=== PATIENT | male | born 1935 | race Caucasian/White ===

== ENCOUNTER 2022-05-21 16:25 | Inpatient (IN) | payer OTHER ==
[~2022-05-21] VITALS: Ht 177.8 cm; Wt 67.6 kg
--- NOTE | 2022-05-21 16:28 | NUR ---
Placed in room 04 . Placed on laboratory monitor, blood pressure machine and pulse oximeter. To gown for exam. Side rails up. Report given to Dimitri BILLINGS.
[2022-05-21 16:29] VITALS: BP_SYST 131
--- NOTE | 2022-05-21 16:51 | NUR ---
PT BIBA AWAKE AND ALERT, AO X4. EMT STATED CALLED 911 BECAUSE PT HAS INCREASED WEAKNESS FOR X3DAYS. PT HAS COUGHT. STATES PT HAS DECREASED APPEITATE. PT PENIES PAIN. PERRLA. PT SKIN LOOKS PALE.
--- NOTE | 2022-05-21 16:59 | NUR ---
MD DR BALL AT BEDSIDE
[2022-05-21 17:31] LABS: ANION GAP 7 (5-15); CALCIUM 8.4 mg/dL (8.4-11.0); CHLORIDE 99 mmol/L (98-107); CREATININE 0.95 mg/dL (0.55-1.30); GLUCOSE 248 mg/dL (70-99); UREA NITROGEN, BLOOD 62 mg/dL (8-21)
[2022-05-21 17:32] LABS: BASOPHILS % (AUTO) 0.2 % (0.0-2.0); NEUTROPHILS # (AUTO) 13.3 K/uL (1.8-7.7)
[2022-05-21 17:36] LABS: EOSINOPHILS % (AUTO) 0.2 % (0.0-4.0); LYMPHOCYTES # (AUTO) 1.1 K/uL (1.0-5.5); LYMPHOCYTES % (AUTO) 7.3 % (20.5-51.5); MEAN CORPUSCULAR HEMOGLOBIN 31 pg (27-31); MEAN CORPUSCULAR HGB CONC 33 % (32-36); MEAN CORPUSCULAR VOLUME 92 fL (79.0-98.0); MONOCYTES # (AUTO) 0.5 K/uL (0.0-1.0); MONOCYTES % (AUTO) 3.6 % (1.7-9.3); NEUTROPHILS % (AUTO) 88.7 % (40.0-70.0); PLATELET COUNT (AUTO) 445 K/uL (130-430); RED BLOOD CELL COUNT(AUTO) 2.27 MIL/uL (4.2-6.2); RED CELL DISTRIBUTION WIDTH 13.6 % (9.0-15.0)
[2022-05-21 17:38] LABS: ALANINE AMINOTRANSFERASE 13 U/L (12-78); ALBUMIN 2.2 g/dL (3.4-4.8); ASPARTATE AMINOTRANSFERASE 8 U/L (10-37); TOTAL BILIRUBIN 0.2 mg/dL (0.0-1.0)
--- NOTE | 2022-05-21 17:53 | NUR ---
COVID-19 GAGANDEEP SWAB OBTAINED, LABELED, AND SENT TO THE LAB.
[2022-05-21] MEDS ORDERED: ACET325T PO (18:10)
[2022-05-21] MEDS ORDERED: PRED5TAB PO (18:10)
[2022-05-21] MEDS ORDERED: GLIM2TAB PO (18:10)
[2022-05-21] MEDS ORDERED: HYDR200T80 PO (18:10)
[2022-05-21] MEDS ORDERED: IBUP-2604 PO (18:10)
[2022-05-21] MEDS ORDERED: HYDR-3919 PO (18:10)
[2022-05-21] MEDS ORDERED: ASPI-862 PO (18:10)
--- NOTE | 2022-05-21 18:10 | NUR ---
Medication reconciliation completed with information provided by patient . Any prior medication reconciliation on file was reviewed and corrected.
--- NOTE | 2022-05-21 18:11 | NUR ---
Mann sheriff in ED - 05/21/22 at 1811 by [email or web address] Medication reconciliation completed with information provided by patient. Any prior medication reconciliation on file was reviewed and corrected.
--- NOTE | 2022-05-21 18:52 | NUR ---
Admit bed requested Patient will be admitted to care of Admitted to TELE unit. Diagnosis GI BLEED , ANEMIA Inpatient (Yes or No) YES Observation (Yes or No) NO Orientation concerns or request close to nursing station (Yes or No) NO Covid Status NEG On vent or bipap NO Isolation requirements NO Needs a sitter NO From Home (Yes or if No enter name of facility) YES Requires Dialysis (Yes or No) YES Med Rec Completed (Yes of No) YES
--- NOTE | 2022-05-21 19:16 | NUR ---
Requisitions for blood sent to the lab with blood transfusion consent.
[2022-05-21 20:45] VITALS: BP_SYST 129
--- NOTE | 2022-05-21 20:50 | NUR ---
ADMISSION NOTE Received patient from ER via theresa, received report from DRY KILN BURNER. Patient admitted with diagnosis of GI BLEED, ANEMIA. Patient oriented to hospital routine, call light, toileting and safety-patient verbalized understanding.
--- NOTE | 2022-05-21 20:52 | NUR ---
Patient will be admitted to care of DR PALMER. Admitted to TELE unit. Will go to room 132C. Belongings list completed. Complete and up to date summary report printed. SBAR report to be given TO SIXTO at bedside with opportunity for questions.
--- NOTE | 2022-05-21 22:38 | NUR ---
Paged Dr. Galindo for sleeping pills
--- NOTE | 2022-05-21 22:45 | NUR ---
CONSULTATION PAGED/CALLED Reason for Consultation: GI BLEED Person Who was Notified: DION Consulting Physician: DR. [facility] ATTENDANT Program Director Specialty: GI Ordering Physician: DR. SPENCER RICH
--- NOTE | 2022-05-21 22:48 | NUR ---
DR PALMER CALLED BACK , PRIMARY RN IS NOT AVAILABLE; TALKED TO MD , INFORMED HIM THAT PT IS REQUESTING FOR SLEEPING PILL ; ORDERED RESTORIL 15 MG PO QHS PRN FOR INSOMNIA , ORDER ENTERED AND NOTIFIED PRIMARY RN.
[2022-05-21] MEDS: TEMAZEPAM 7.5 MG CAPSULE PO PRN (23:13)
[2022-05-22] VITALS (17 sets, daily range): BP systolic 99–149
[2022-05-22] MEDS ORDERED: ONDANSETRON HCL 4 MG/2 ML VIAL IM PRN (05:00)
[2022-05-22] MEDS ORDERED: PANTOPRAZOLE SODIUM 40 MG/VIAL (PROTONIX) IVP ONE (05:00)
--- NOTE | 2022-05-22 05:00 | NUR ---
VOMITING: Patient had episode of VOMITING with blood. GI notifbarbi MATIAS was notified and new orders were placed for N/V medications.
[2022-05-22] MEDS ORDERED: PANTOPRAZOLE SODIUM 40 MG/VIAL (PROTONIX) ONE (05:18)
[2022-05-22] MEDS: PANTOPRAZOLE SODIUM 40 MG in NS 50 ML IV SCH ×4 (06:02→21:28)
--- NOTE | 2022-05-22 07:20 | NUR ---
opening, received sbar from night nurse, patient is in bed, just finished 2unit of blood transfusion, family at bedside. bed lock and low, call lugth within reach
--- NOTE | 2022-05-22 07:30 | NUR ---
md dr brownlee at bedside and ordered patient be transferred in icu,
--- NOTE | 2022-05-22 07:50 | NUR ---
transferred to icu enodorsed care to horticulture superintendent
--- NOTE | 2022-05-22 07:50 | NUR ---
PATIENT TRANSFERRED FROM [facility], DR PAUL ROUNDED ON PATIENT AND ORDERED ICU STATUS, RECEIVED REPORT FROM ALFONZO RN-REPORTED THAT PATIENT HAD ONE BLOODY EMESIS WITH BROWN CLOTS AND NO BOWEL MOVEMENTS. NO EMESIS UPON ARRIVAL TO ICU. PT A/OX4, SINUS TACHY, ROOM AIR WITH O2 SAT >90, NO S/S OF DISTRESS, PALE SKIN, MOVES ALL EXTREMITIES WITH WEAKNESS, NO NUMBNESS OR TINGLING IN EXTREMITIES, DENIES NAUSEA, DENIES PAIN, CONTINENT BLADDER, IV 20G LEFT AC AND IV 22G LEFT FOREARM, PROTONIX DRIP RUNNING 8MG AT 10ML/HR. WILL CONTINUE TO MONITOR.
[2022-05-22 08:30] LABS: BASOPHILS % (AUTO) 0.2 % (0.0-2.0); EOSINOPHILS % (AUTO) 0.1 % (0.0-4.0); HEMATOCRIT 24.2 % (36-54); HEMOGLOBIN 8.1 g/dL (14.0-18.0); LYMPHOCYTES % (AUTO) 6.1 % (20.5-51.5); MEAN CORPUSCULAR HEMOGLOBIN 29 pg (27-31); MEAN CORPUSCULAR HGB CONC 34 % (32-36); MEAN CORPUSCULAR VOLUME 86 fL (79.0-98.0); MONOCYTES # (AUTO) 0.7 K/uL (0.0-1.0); MONOCYTES % (AUTO) 4.6 % (1.7-9.3); PLATELET COUNT (AUTO) 332 K/uL (130-430); RED BLOOD CELL COUNT(AUTO) 2.82 MIL/uL (4.2-6.2); RED CELL DISTRIBUTION WIDTH 16.6 % (9.0-15.0); WHITE BLOOD COUNT (AUTO) 15.7 K/uL (4.8-10.8)
[2022-05-22 08:32] LABS: ANION GAP 5 (5-15); CALCIUM 7.4 mg/dL (8.4-11.0); CHLORIDE 104 mmol/L (98-107); CREATININE 0.81 mg/dL (0.55-1.30); GLUCOSE 247 mg/dL (70-99); POTASSIUM 4.3 mmol/L (3.5-5.1); UREA NITROGEN, BLOOD 64 mg/dL (8-21)
[2022-05-22 08:40] LABS: TOTAL IRON BIND. CAPACITY 129 ug/dL (250-450)
[2022-05-22] MEDS ORDERED: SIMETHICONE 40 MG/0.6 ML ML ONE (10:01)
[2022-05-22] MEDS: MIDAZOLAM HCL 5 MG/5 ML VIAL ONE ×3 (10:21→10:27)
[2022-05-22] MEDS: fentaNYL CITRATE/PF 100 MCG/2 ML AMP ONE ×2 (10:21→10:24)
[2022-05-22] MEDS ORDERED: D5/0.45 NS 1,000 ML IV SCH (11:00)
--- NOTE | 2022-05-22 11:01 | NUR ---
EGD PERFORMED AT BEDSIDE BY DR PAUL. PATIENT TOLERATED WELL, ON 2L NASAL CANULA, NO S/S OF DISTRESS.
[2022-05-22] MEDS ORDERED: DEXTROSE 50% JECT 50 ML DISP.SYRIN IVP PRN (11:15)
[2022-05-22] MEDS ORDERED: D5W 1,000 ML IV PRN (11:15)
[2022-05-22] MEDS ORDERED: GLUCOSE (DEXTROSE) ORAL GEL -Adults PO PRN (11:15)
[2022-05-22] MEDS: 0.45% NACL 1,000 ML IV SCH (11:23)
[2022-05-22] MEDS: INSULIN REGULAR, HUMAN 100 UNITS/ML, 3 ML VIAL (humuLIN R) SUBCUT PRN ×2 (12:38→19:34)
[2022-05-22 16:53] LABS: RED CELL DISTRIBUTION WIDTH 16.5 % (9.0-15.0)
[2022-05-22 17:03] LABS: MEAN CORPUSCULAR HEMOGLOBIN 27 pg (27-31); MEAN CORPUSCULAR HGB CONC 32 % (32-36); MEAN CORPUSCULAR VOLUME 85 fL (79.0-98.0); PLATELET COUNT (AUTO) 420 K/uL (130-430); WHITE BLOOD COUNT (AUTO) 18.9 K/uL (4.8-10.8)
[2022-05-22 17:06] LABS: RED BLOOD CELL COUNT(AUTO) 1.69 MIL/uL (4.2-6.2)
[2022-05-22 17:08] LABS: HEMATOCRIT 22.8 % (36-54); HEMOGLOBIN 7.8 g/dL (14.0-18.0)
--- NOTE | 2022-05-22 19:30 | NUR ---
Registry 85- Kenn H. received report from day RN. Assuming care now.
[2022-05-22 19:58] LABS: BASOPHILS % (MANUAL) 8 % (0-2); EOSINOPHILS % (MANUAL) 23 % (0-7); LYMPHOCYTES % (MANUAL) 16 % (20-46); MONOCYTES % (MANUAL) 4 % (0-11)
[2022-05-22] MEDS ORDERED: MORPHINE 2 MG/ML INJ. SYRINGE IVP PRN (20:00)
[2022-05-22] MEDS ORDERED: NALOXONE HCL 0.4 MG/ML AMP (NARCAN) IVP PRN (20:00)
--- NOTE | 2022-05-22 23:30 | NUR ---
Patient has now had 5 maroon to black bowel movements. VSS. at bedside.
[2022-05-23] VITALS (17 sets, daily range): BP systolic 115–163
[2022-05-23 00:47] LABS: BASOPHILS % (AUTO) 0.3 % (0.0-2.0); EOSINOPHILS # (AUTO) 0.1 K/uL (0.0-0.4); EOSINOPHILS % (AUTO) 0.4 % (0.0-4.0); LYMPHOCYTES # (AUTO) 1.5 K/uL (1.0-5.5); LYMPHOCYTES % (AUTO) 10.8 % (20.5-51.5); MEAN CORPUSCULAR HEMOGLOBIN 29 pg (27-31); MEAN CORPUSCULAR HGB CONC 33 % (32-36); MEAN CORPUSCULAR VOLUME 87 fL (79.0-98.0); MONOCYTES # (AUTO) 0.6 K/uL (0.0-1.0); MONOCYTES % (AUTO) 4.1 % (1.7-9.3); NEUTROPHILS # (AUTO) 11.6 K/uL (1.8-7.7); NEUTROPHILS % (AUTO) 84.4 % (40.0-70.0); PLATELET COUNT (AUTO) 290 K/uL (130-430); RED BLOOD CELL COUNT(AUTO) 2.42 MIL/uL (4.2-6.2); RED CELL DISTRIBUTION WIDTH 16.7 % (9.0-15.0); WHITE BLOOD COUNT (AUTO) 13.8 K/uL (4.8-10.8)
[2022-05-23 00:51] LABS: HEMOGLOBIN 6.9 g/dL (14.0-18.0)
--- NOTE | 2022-05-23 00:53 | NUR ---
Notified of critical Hgb, will transfuse 2 units per standing orders.
--- NOTE | 2022-05-23 01:13 | NUR ---
DR. HUMBERTO RODRIGUEZ PAGED AT THIS TIME FOR ORDERS. SPOKE WITH SHARON AT THE EXCHANGE.
[2022-05-23] MEDS: PANTOPRAZOLE SODIUM 40 MG in NS 50 ML IV SCH ×5 (01:14→21:33)
[2022-05-23] MEDS: 0.45% NACL 1,000 ML IV SCH ×2 (01:16→21:30)
[2022-05-23 08:30] LABS: BASOPHILS % (AUTO) 0.2 % (0.0-2.0); EOSINOPHILS # (AUTO) 0.1 K/uL (0.0-0.4); EOSINOPHILS % (AUTO) 0.5 % (0.0-4.0); HEMATOCRIT 23.9 % (36-54); HEMOGLOBIN 8.2 g/dL (14.0-18.0); LYMPHOCYTES # (AUTO) 1.2 K/uL (1.0-5.5); LYMPHOCYTES % (AUTO) 9.4 % (20.5-51.5); MEAN CORPUSCULAR HEMOGLOBIN 30 pg (27-31); MEAN CORPUSCULAR HGB CONC 34 % (32-36); MEAN CORPUSCULAR VOLUME 87 fL (79.0-98.0); MONOCYTES # (AUTO) 0.4 K/uL (0.0-1.0); MONOCYTES % (AUTO) 3.5 % (1.7-9.3); NEUTROPHILS # (AUTO) 10.8 K/uL (1.8-7.7); NEUTROPHILS % (AUTO) 86.4 % (40.0-70.0); PLATELET COUNT (AUTO) 271 K/uL (130-430); RED BLOOD CELL COUNT(AUTO) 2.76 MIL/uL (4.2-6.2); RED CELL DISTRIBUTION WIDTH 16.1 % (9.0-15.0); WHITE BLOOD COUNT (AUTO) 12.5 K/uL (4.8-10.8)
--- NOTE | 2022-05-23 10:10 | NUR ---
IV ANOTHER IV ACCESS INSERTED INTO LEFT A/C, USING 20 GAUGE CATHETER, GOOD BLOOD RETURN NOTED.
--- NOTE | 2022-05-23 11:21 | NUR ---
BLOOD TRANSFUSION HUNG 1 UNIT PACKED RBC, V/S TAKEN PRIOR TO THE START OF TRANSFUSION AND VITAL SIGNS MONITORED 15 MINUTES AFTER, CONTINUE TO MONITOR PATIENT FOR POSSIBLE REACTIONS.
--- NOTE | 2022-05-23 13:00 | NUR ---
Dietitian Recommendations * Continue NPO per physician * If/when medically appropriate, consider advance to: Clear Liquid diet w/ Tod BID --> Full Liquid, CCHO diet w/ Glucerna BID, Tod BID --> Soft (low-fiber/bland), CCHO diet w/ Glucerna BID, Tod BID * If PO diet is not indicated within 7-10 days, consider TPN/PPN support LP, MS, RD Please refer to Nutrition Assessment for details. Addendum: 05/23/22 at [address] Amended: Links added.
--- NOTE | 2022-05-23 13:00 | NUR ---
WOUND EVALUATION: Wound Consult received from Dr. Socrates Galindo . Thank you, Dr. Socrates Galindo for the consult. Patient received in a Essex Bed with an isoflex TOSHIA mattress, awake, alert, with periods of confusion. Patient is unable to turn independently. Cholo Score is 13. Past Medical History: Arthritis, Hypertension, COPD, Diabetes Mellitus. Possible rheumatoid arthritis. Recent Labs: WBC 12.5, RBC 2.76, HGB 8.2, HCT 23.9., BUN 64, Creat 0.81, Glucose 247, TIBC 129, Albumin 2.2. Microbiology: MRSA screen result in progress. Intrinsic factors that delay wound healing: COPD, Diabetes Mellitus. Extrinsic factors that delay wound healing: Decreased mobility. Wound Assessment: 1. R Sacral area: Unstageable pressure uilcer, present on admission. Wound bed has 100% yellow tissue. No odor, no drainage. Guerda-wound intact. Measures 2.0 cm X 1.5 cm . 2. R Sacral area inferior to site 1: Unstageable pressure uilcer, present on admission. Wound bed has 95% yellow tissue, 5% pink tissue. No odor, no drainage. Guerda-wound intact. Measures 2.0 cm X 1.5 cm . 3. R Buttock: Unstageable pressure uilcer, present on admission. Wound bed has 70% yellow tissue, 30% pink tissue. No odor, no drainage. Guerda-wound intact. Measures 1.1 cm X 0.5 cm. Recommend: Cleanse wounds with Normal Saline. Apply moisture barrier cream to Guerda-wounds. Apply Venelex ointment to wound beds. Cover with sacral foam dressing. Perform wound care daily, and PRN for dressing soiling and dislodgment. Also recommend: Reposition patient side to side only every 2 hours with pillow support and off-load pressure areas with pillows for pressure re-distribution. Offload, elevate and float bilateral heels with 1 pillow lengthwise under each extremity at all times. Perform skin care and monitor skin integrity Q shift. Use moisture barrier cream on buttocks and other moisture susceptible areas QID and as needed for soiling. Maintain patient on TOSHIA mattress.
--- NOTE | 2022-05-23 13:19 | NUR ---
MD DR PALMER IN THE ROOM, EXAMINED THE PATIENT. AT BEDSIDE.
--- NOTE | 2022-05-23 14:35 | NUR ---
BT TRANSFUSION COMPLETED, NO ADVERSE REACTIONS NOTED.
--- NOTE | 2022-05-23 15:30 | NUR ---
TO MST REPORT GIVEN TO MANUELITO ROSARIO. TRANSFERRED PT TO ROOM 124-A. PT ON PROTONIX DRIP AND 1/2 NS AT 75 ML PER HR THRU LEFT A/C. NO S/SX OF INFILTRATION TO SITE.
--- NOTE | 2022-05-23 15:30 | NUR ---
TRANSFER FROM ICU: PATIENT IS RESTING IN BED WITH NO ADDITIONAL DISTRESS OR PAIN NOTED. AAOX3 ABLE TO MAKE NEEDS KNOWN. PATIENT IS DEMANDING AND VERBALLY ABUSIVE. PATIENT DEMANDED FOR A ELECTRICAL BLANKET WHICH THE FACILITY DONT HAVE AND MADE HIM AWARE. PATIENT HAS 4 BLANKETS ON THE TOP OF HIM. OFFERED PATIENT A WARM BLANKET INSTEAD. PATIENT STATED, "WHAT THE F." CALMLY AND POLITELY ASKED PATIENT TO NOT USE INAPPROPRIATE WORDS. HOWEVER, PATIENT'S STATES " I CAN SAY WHATEVER THE FK I WANT". BED IN LOW AND LOCK POSITION. BED ALARM ON. CALL LIGHT WITHIN REACH. STABLE CONDITION AT THIS TIME. SBAR REPORT GIVEN BY ICU NURSE AT THE BEDSIDE.
[2022-05-23 17:11] LABS: BASOPHILS % (AUTO) 0.2 % (0.0-2.0); EOSINOPHILS # (AUTO) 0.1 K/uL (0.0-0.4); EOSINOPHILS % (AUTO) 0.7 % (0.0-4.0); HEMATOCRIT 29.5 % (36-54); HEMOGLOBIN 10.1 g/dL (14.0-18.0); LYMPHOCYTES # (AUTO) 1.8 K/uL (1.0-5.5); LYMPHOCYTES % (AUTO) 12.8 % (20.5-51.5); MEAN CORPUSCULAR HEMOGLOBIN 30 pg (27-31); MEAN CORPUSCULAR HGB CONC 34 % (32-36); MEAN CORPUSCULAR VOLUME 88 fL (79.0-98.0); MONOCYTES # (AUTO) 0.5 K/uL (0.0-1.0); MONOCYTES % (AUTO) 3.9 % (1.7-9.3); NEUTROPHILS # (AUTO) 11.4 K/uL (1.8-7.7); NEUTROPHILS % (AUTO) 82.4 % (40.0-70.0); PLATELET COUNT (AUTO) 250 K/uL (130-430); RED BLOOD CELL COUNT(AUTO) 3.35 MIL/uL (4.2-6.2); RED CELL DISTRIBUTION WIDTH 15.3 % (9.0-15.0); WHITE BLOOD COUNT (AUTO) 13.8 K/uL (4.8-10.8)
--- NOTE | 2022-05-23 18:45 | NUR ---
CLOSING NOTES: PATIENT IS RESTING IN BED SLEEPING. AT THE BEDSIDE. NO ADDITIONAL DISTRESS OR PAIN NOTED. ALL NEEDS MET. STABLE CONDITION AT THIS TIME.
[2022-05-23] MEDS: EMOLLIENT COMBINATION NO.73 78 GM CREAM..G. TP SCH (21:32)
[2022-05-24 00:58] VITALS: BP_SYST 111
[2022-05-24 02:11] LABS: BASOPHILS % (AUTO) 0.2 % (0.0-2.0); EOSINOPHILS # (AUTO) 0.1 K/uL (0.0-0.4); EOSINOPHILS % (AUTO) 0.7 % (0.0-4.0); HEMATOCRIT 27.2 % (36-54); HEMOGLOBIN 9.4 g/dL (14.0-18.0); LYMPHOCYTES # (AUTO) 1.1 K/uL (1.0-5.5); MEAN CORPUSCULAR HEMOGLOBIN 31 pg (27-31); MEAN CORPUSCULAR HGB CONC 35 % (32-36); MEAN CORPUSCULAR VOLUME 88 fL (79.0-98.0); MONOCYTES # (AUTO) 0.4 K/uL (0.0-1.0); MONOCYTES % (AUTO) 3.6 % (1.7-9.3); NEUTROPHILS # (AUTO) 9.3 K/uL (1.8-7.7); NEUTROPHILS % (AUTO) 85.5 % (40.0-70.0); PLATELET COUNT (AUTO) 250 K/uL (130-430); RED BLOOD CELL COUNT(AUTO) 3.08 MIL/uL (4.2-6.2); RED CELL DISTRIBUTION WIDTH 15.4 % (9.0-15.0); WHITE BLOOD COUNT (AUTO) 10.8 K/uL (4.8-10.8)
[2022-05-24] MEDS: 0.45% NACL 1,000 ML IV SCH (02:29)
[2022-05-24] MEDS: PANTOPRAZOLE SODIUM 40 MG in NS 50 ML IV SCH ×4 (02:29→17:12)
[2022-05-24 07:46] VITALS: BP_SYST 134
[2022-05-24] MEDS: EMOLLIENT COMBINATION NO.73 78 GM CREAM..G. TP SCH (08:25)
[2022-05-24] MEDS: BALSAM PERU/CASTOR OIL 56.7 GM OINT...G. TP SCH (08:25)
[2022-05-24 08:52] LABS: ALANINE AMINOTRANSFERASE 7 U/L (12-78); ALBUMIN 1.9 g/dL (3.4-4.8); ANION GAP 8 (5-15); ASPARTATE AMINOTRANSFERASE 11 U/L (10-37); CALCIUM 7.4 mg/dL (8.4-11.0); CHLORIDE 103 mmol/L (98-107); CREATININE 0.55 mg/dL (0.55-1.30); GLUCOSE 84 mg/dL (70-99); TOTAL BILIRUBIN 0.8 mg/dL (0.0-1.0); UREA NITROGEN, BLOOD 26 mg/dL (8-21)
--- NOTE | 2022-05-24 09:06 | NUR ---
[facility]/HCP CM INSPECTOR SET UP AND LAY OUT MS MARY JENKINS WAS CALLED RE: TO F/U TRANSFER TO HIGHER LEVEL OF CARE FOR AN INTERVENTIONAL RADIOLOGIST TO WORK ON THE ULCER/GI BLEED PER ORDER OF GI CONSULT DR JAYDEN PAUL. LEFT MS HERNANDEZ A VOICE MESSAGE.
[2022-05-24] MEDS ORDERED: KCL 20 mEq in 100 mL (PREMIX) 100 ML IV ONE (10:30)
[2022-05-24] MEDS: KCL 20 mEq in D5/0.45NS 1000mL 1,000 ML IV SCH (11:29)
[2022-05-24] MEDS ORDERED: DEXTROSE 50% JECT 50 ML DISP.SYRIN IVP ONE (11:45)
[2022-05-24 12:58] VITALS: BP_SYST 125
--- NOTE | 2022-05-24 13:24 | NUR ---
[facility]/HCP CM MS HERNANDEZ CALLED TO INFORM THAT TRANSFER TO HIGHER LEVEL OF CARE FOR AN INTERVENTIONAL RADIOLOGIST WILL NOT HAPPEN THIS WEEKEND.
[2022-05-24 16:47] VITALS: BP_SYST 130
[2022-05-24 18:18] LABS: BASOPHILS % (AUTO) 0.3 % (0.0-2.0); EOSINOPHILS # (AUTO) 0.1 K/uL (0.0-0.4); EOSINOPHILS % (AUTO) 1.1 % (0.0-4.0); HEMATOCRIT 28.1 % (36-54); HEMOGLOBIN 9.8 g/dL (14.0-18.0); LYMPHOCYTES # (AUTO) 1.2 K/uL (1.0-5.5); LYMPHOCYTES % (AUTO) 11.6 % (20.5-51.5); MEAN CORPUSCULAR HEMOGLOBIN 31 pg (27-31); MEAN CORPUSCULAR HGB CONC 35 % (32-36); MEAN CORPUSCULAR VOLUME 88 fL (79.0-98.0); MONOCYTES # (AUTO) 0.4 K/uL (0.0-1.0); MONOCYTES % (AUTO) 3.7 % (1.7-9.3); NEUTROPHILS # (AUTO) 8.9 K/uL (1.8-7.7); NEUTROPHILS % (AUTO) 83.3 % (40.0-70.0); PLATELET COUNT (AUTO) 303 K/uL (130-430); RED BLOOD CELL COUNT(AUTO) 3.19 MIL/uL (4.2-6.2); RED CELL DISTRIBUTION WIDTH 15.1 % (9.0-15.0); WHITE BLOOD COUNT (AUTO) 10.7 K/uL (4.8-10.8)
[2022-05-24 20:00] VITALS: BP_SYST 137
--- NOTE | 2022-05-24 20:12 | NUR ---
PT'S SPOUSE WAS MADE AWARE THAT TRANSFER TO [facility] WILL NOT HAPPEN PER [facility]ROLMAN.
[2022-05-24] MEDS: PANTOPRAZOLE SODIUM 40 MG/VIAL (PROTONIX) IVP SCH (22:30)
[2022-05-25] VITALS: BP_SYST 119
[2022-05-25] MEDS: TEMAZEPAM 7.5 MG CAPSULE PO PRN (02:30)
[2022-05-25] MEDS: KCL 20 mEq in D5/0.45NS 1000mL 1,000 ML IV SCH ×2 (02:32→15:59)
[2022-05-25] MEDS: EMOLLIENT COMBINATION NO.73 78 GM CREAM..G. TP SCH ×2 (02:33→09:56)
--- NOTE | 2022-05-25 02:40 | NUR ---
MEDICATION: SLEEP AID PT asked earlier if he could take his OTC sleep aid, informed pt he could not but that he had an order for temazepam 15mg for insomnia. He hesitated d/t 's disapproval and declined. Later at 214, he called requesting temazepam and it was provided. again disapproved and pt declined it again. Medication was not administered and returned to [facility]. Non-pharmacological interventions were suggested.
[2022-05-25 07:10] LABS: BASOPHILS % (AUTO) 0.2 % (0.0-2.0); EOSINOPHILS # (AUTO) 0.1 K/uL (0.0-0.4); EOSINOPHILS % (AUTO) 0.8 % (0.0-4.0); HEMOGLOBIN 10.1 g/dL (14.0-18.0); LYMPHOCYTES # (AUTO) 1.2 K/uL (1.0-5.5); LYMPHOCYTES % (AUTO) 8.6 % (20.5-51.5); MEAN CORPUSCULAR HEMOGLOBIN 30 pg (27-31); MEAN CORPUSCULAR HGB CONC 34 % (32-36); MEAN CORPUSCULAR VOLUME 88 fL (79.0-98.0); MONOCYTES # (AUTO) 0.5 K/uL (0.0-1.0); MONOCYTES % (AUTO) 3.6 % (1.7-9.3); NEUTROPHILS # (AUTO) 12.3 K/uL (1.8-7.7); NEUTROPHILS % (AUTO) 86.8 % (40.0-70.0); PLATELET COUNT (AUTO) 351 K/uL (130-430); RED BLOOD CELL COUNT(AUTO) 3.42 MIL/uL (4.2-6.2); RED CELL DISTRIBUTION WIDTH 15.2 % (9.0-15.0); WHITE BLOOD COUNT (AUTO) 14.1 K/uL (4.8-10.8)
[2022-05-25 07:24] LABS: ANION GAP 8 (5-15); CALCIUM 7.6 mg/dL (8.4-11.0); CHLORIDE 100 mmol/L (98-107); CREATININE 0.58 mg/dL (0.55-1.30); GLUCOSE 167 mg/dL (70-99); POTASSIUM 3.2 mmol/L (3.5-5.1); UREA NITROGEN, BLOOD 17 mg/dL (8-21)
[2022-05-25 07:58] VITALS: BP_SYST 135
[2022-05-25] MEDS: BALSAM PERU/CASTOR OIL 56.7 GM OINT...G. TP SCH (09:56)
[2022-05-25] MEDS: PANTOPRAZOLE SODIUM 40 MG/VIAL (PROTONIX) IVP SCH (09:56)
[2022-05-25] MEDS ORDERED: KCL 20 mEq in 100 mL (PREMIX) 100 ML IV ONE (10:00)
[2022-05-25 11:35] VITALS: BP_SYST 123
[2022-05-25 15:20] VITALS: BP_SYST 125
[2022-05-25] MEDS ORDERED: D5NS 500 ML IV ONE (17:15)
[2022-05-25] MEDS ORDERED: KCL 40 mEq in 100 mL (PREMIX) 100 ML IV ONE (17:15)
[2022-05-26] MEDS: PANTOPRAZOLE SODIUM 40 MG/VIAL (PROTONIX) IVP SCH ×3 (00:01→20:55)
[2022-05-26] MEDS: TEMAZEPAM 7.5 MG CAPSULE PO PRN (00:02)
[2022-05-26] MEDS: EMOLLIENT COMBINATION NO.73 78 GM CREAM..G. TP SCH ×3 (00:10→20:55)
[2022-05-26 00:37] VITALS: BP_SYST 133
--- NOTE | 2022-05-26 07:33 | NUR ---
receive the patient from the shift foreman rn in a stable condition . with admitting diagnosis of upper GI bleed aox3 . no complain of pain at this time . no sign and symptoms of respiratory distress . will continue to monitor .
[2022-05-26 07:45] LABS: ANION GAP 7 (5-15); CALCIUM 7.4 mg/dL (8.4-11.0); CHLORIDE 101 mmol/L (98-107); CREATININE 0.55 mg/dL (0.55-1.30); GLUCOSE 157 mg/dL (70-99); POTASSIUM 3.9 mmol/L (3.5-5.1); UREA NITROGEN, BLOOD 13 mg/dL (8-21)
[2022-05-26 07:58] LABS: BASOPHILS % (AUTO) 0.2 % (0.0-2.0); EOSINOPHILS # (AUTO) 0.2 K/uL (0.0-0.4); HEMATOCRIT 27.6 % (36-54); HEMOGLOBIN 9.4 g/dL (14.0-18.0); LYMPHOCYTES # (AUTO) 1.3 K/uL (1.0-5.5); LYMPHOCYTES % (AUTO) 11.5 % (20.5-51.5); MEAN CORPUSCULAR HEMOGLOBIN 30 pg (27-31); MEAN CORPUSCULAR HGB CONC 34 % (32-36); MEAN CORPUSCULAR VOLUME 88 fL (79.0-98.0); MONOCYTES # (AUTO) 0.4 K/uL (0.0-1.0); MONOCYTES % (AUTO) 3.4 % (1.7-9.3); NEUTROPHILS # (AUTO) 9.3 K/uL (1.8-7.7); NEUTROPHILS % (AUTO) 82.9 % (40.0-70.0); PLATELET COUNT (AUTO) 332 K/uL (130-430); RED BLOOD CELL COUNT(AUTO) 3.14 MIL/uL (4.2-6.2); RED CELL DISTRIBUTION WIDTH 15.1 % (9.0-15.0); WHITE BLOOD COUNT (AUTO) 11.2 K/uL (4.8-10.8)
[2022-05-26] MEDS: BALSAM PERU/CASTOR OIL 56.7 GM OINT...G. TP SCH (10:00)
[2022-05-26 11:25] VITALS: BP_SYST 138
[2022-05-26 16:25] VITALS: BP_SYST 136
--- NOTE | 2022-05-26 18:33 | NUR ---
will endosre to police shift commander rn for continuity of care . discharge planning to higher level of care
[2022-05-26 20:00] VITALS: BP_SYST 133
--- NOTE | 2022-05-27 06:21 | NUR ---
Pt was asked twice to be given a bed bath and to change his dressing and he refused both times.
--- NOTE | 2022-05-27 07:30 | NUR ---
receive the patient from the conductor/engineer rn . with admitting diagnosis of upper gi bleed . no complain of pain at this time . no sign and symptoms of respiratory distress . will continue to monitor
[2022-05-27] MEDS: PANTOPRAZOLE SODIUM 40 MG/VIAL (PROTONIX) IVP SCH ×2 (09:46→20:34)
[2022-05-27] MEDS: BALSAM PERU/CASTOR OIL 56.7 GM OINT...G. TP SCH (09:47)
[2022-05-27] MEDS: EMOLLIENT COMBINATION NO.73 78 GM CREAM..G. TP SCH ×2 (09:47→20:40)
[2022-05-27] MEDS ORDERED: PANT40TA45 PO (12:23)
[2022-05-27] MEDS ORDERED: SUCR1TAB2 PO (12:23)
[2022-05-27 13:02] LABS: BASOPHILS # (AUTO) 0.1 K/uL (0.0-0.2); BASOPHILS % (AUTO) 0.4 % (0.0-2.0); EOSINOPHILS # (AUTO) 0.2 K/uL (0.0-0.4); EOSINOPHILS % (AUTO) 1.2 % (0.0-4.0); HEMATOCRIT 28.1 % (36-54); HEMOGLOBIN 9.8 g/dL (14.0-18.0); LYMPHOCYTES # (AUTO) 1.1 K/uL (1.0-5.5); LYMPHOCYTES % (AUTO) 7.8 % (20.5-51.5); MEAN CORPUSCULAR HEMOGLOBIN 30 pg (27-31); MEAN CORPUSCULAR HGB CONC 35 % (32-36); MEAN CORPUSCULAR VOLUME 87 fL (79.0-98.0); MONOCYTES # (AUTO) 0.7 K/uL (0.0-1.0); MONOCYTES % (AUTO) 4.9 % (1.7-9.3); NEUTROPHILS # (AUTO) 11.9 K/uL (1.8-7.7); NEUTROPHILS % (AUTO) 85.7 % (40.0-70.0); PLATELET COUNT (AUTO) 453 K/uL (130-430); RED BLOOD CELL COUNT(AUTO) 3.23 MIL/uL (4.2-6.2); RED CELL DISTRIBUTION WIDTH 15.1 % (9.0-15.0); WHITE BLOOD COUNT (AUTO) 13.9 K/uL (4.8-10.8)
[2022-05-27 13:15] VITALS: BP_SYST 121
[2022-05-27 16:00] VITALS: BP_SYST 139
[2022-05-27 17:54] VITALS: BP_SYST 144
--- NOTE | 2022-05-27 18:40 | NUR ---
talk to regarding the discharge . the was refusing the discharge for home with home health . the states that the patient is too weak to be discharge , the rn made patient teaching that the recovery , the md will talk to the patient according to md ceballos
[2022-05-27 19:35] VITALS: BP_SYST 130
--- NOTE | 2022-05-27 19:35 | NUR ---
INITIAL NOTE AT INITIAL ASSESSMENT, PATIENT IS RESTING IN BED, STABLE, NO SIGNS OF RESPIRATORY DISTRESS. PATIENT VERBALIZES NO PAIN. PLAN OF CARE FOR THE EVENING IS COMMUNICATED WITH THE PATIENT, AND HIS , LOLA AT BEDSIDE. CALL LIGHT PLACED WITHIN REACH. BED IS LOCKED, ALARMED, AND AT THE LOWEST LEVEL. FALL, SAFETY, RESPIRATORY, AND ASPIRATION PRECAUTIONS WILL BE TAKEN THROUGHOUT THE SHIFT.
--- NOTE | 2022-05-27 19:35 | NUR ---
talke to Md ceballos about the refusal to be discharge , md ceballos will talk to the tomorrow about home with home health or assisted facility . also ordered cbc and bmp for tomorrow .
--- NOTE | 2022-05-27 19:37 | NUR ---
will endorse to operation shift supervisor rn for continuity of care
[2022-05-27] MEDS: TEMAZEPAM 7.5 MG CAPSULE PO PRN (20:34)
--- NOTE | 2022-05-27 21:30 | NUR ---
ORAL CARE/ HYGIENE CARE ORAL CARE AND HYGIENE CARE PROVIDED AT THIS TIME, PATIENT IS REPOSITIONED FOR COMFORT. PATIENT TOLERATED WELL.
[2022-05-28] VITALS: BP_SYST 131
--- NOTE | 2022-05-28 01:15 | NUR ---
SEPSIS / COMMUNICATION W/ DR. PALMER, A PAGED BACK AT THIS TIME, HE WAS MADE AWARE THAT PATIENT IS SHOWING "SEVERE SEPSIS RISK" ON NURSING INTERVENTIONS DUE TO INCREASINGLY ELEVATED HR (AROUND 118), AND ELEVATED WBCS. MD VERBALIZED HE WILL PUT IN HIS OWN ORDERS AT HIS TIME.
[2022-05-28 04:14] LABS: BILIRUBIN,URINE 2+ (NEGATIVE); BLOOD, URINE NEGATIVE (NEGATIVE); COLOR,URINE YELLOW (YELLOW); GLUCOSE,URINE NEGATIVE (NEGATIVE); KETONES,URINE 3+ (NEGATIVE); LEUKOCYTE ESTERASE ,URINE TRACE (NEGATIVE); NITRITE, URINE NEGATIVE (NEGATIVE); PROTEIN URINE NEGATIVE (NEGATIVE)
[2022-05-28 04:17] LABS: CLARITY/URINE HAZY (CLEAR)
--- NOTE | 2022-05-28 04:20 | NUR ---
ROUNDS PATIENT IS SLEEPING, STABLE, NO SIGNS OF RESPIRATORY DISTRESS. IS AT BEDSIDE. CALL LIGHT IS WITHIN REACH, BED IS LOCKED, ALARMED, AND AT THE LOWEST LEVEL.
[2022-05-28 04:27] LABS: BACTERIA,URINE FEW /HPF (None Seen); RBC,URINE NONE SEEN /HPF (0-3)
[2022-05-28 04:32] LABS: MUCUS,URINE None Seen /LPF (None Seen)
[2022-05-28] MEDS: INSULIN REGULAR, HUMAN 100 UNITS/ML, 3 ML VIAL (humuLIN R) SUBCUT PRN (06:13)
--- NOTE | 2022-05-28 06:40 | NUR ---
CLOSING NOTE PATIENT SLEPT WELL DURING THE NIGHT, PATIENT'S HR REMAINED AROUND 118 THIS AM, Socrates COLMENARES WAS ALREADY MADE AWARE. AT THIS TIME, PATIENT IS RESTING IN BED, STABLE, NO SIGNS OF RESPIRATORY DISTRESS. IS AT BEDSIDE. BED IS LOCKED, ALARMED, AND AT THE LOWEST LEVEL. FALL, SAFETY, RESPIRATORY, AND ASPIRATION PRECAUTIONS HAVE BEEN IN PLACE THROUGHOUT THE SHIFT. WILL CONTINUE TO MONITOR UNTIL REPORT IS GIVEN AT BEDSIDE TO AM NURSE.
[2022-05-28 07:21] LABS: BASOPHILS % (AUTO) 0.3 % (0.0-2.0); EOSINOPHILS # (AUTO) 0.1 K/uL (0.0-0.4); EOSINOPHILS % (AUTO) 0.3 % (0.0-4.0); HEMATOCRIT 28.5 % (36-54); HEMOGLOBIN 9.7 g/dL (14.0-18.0); LYMPHOCYTES % (AUTO) 5.9 % (20.5-51.5); MEAN CORPUSCULAR HEMOGLOBIN 30 pg (27-31); MEAN CORPUSCULAR HGB CONC 34 % (32-36); MEAN CORPUSCULAR VOLUME 88 fL (79.0-98.0); MONOCYTES # (AUTO) 0.7 K/uL (0.0-1.0); MONOCYTES % (AUTO) 4.4 % (1.7-9.3); NEUTROPHILS # (AUTO) 14.6 K/uL (1.8-7.7); NEUTROPHILS % (AUTO) 89.1 % (40.0-70.0); PLATELET COUNT (AUTO) 504 K/uL (130-430); RED BLOOD CELL COUNT(AUTO) 3.24 MIL/uL (4.2-6.2); RED CELL DISTRIBUTION WIDTH 15.2 % (9.0-15.0); WHITE BLOOD COUNT (AUTO) 16.4 K/uL (4.8-10.8)
[2022-05-28 08:41] LABS: ALBUMIN 1.7 g/dL (3.4-4.8); ANION GAP 8 (5-15); ASPARTATE AMINOTRANSFERASE 10 U/L (10-37); CALCIUM 8.2 mg/dL (8.4-11.0); CHLORIDE 94 mmol/L (98-107); CREATININE 0.76 mg/dL (0.55-1.30); GLUCOSE 150 mg/dL (70-99); POTASSIUM 3.5 mmol/L (3.5-5.1); TOTAL BILIRUBIN 1.8 mg/dL (0.0-1.0); UREA NITROGEN, BLOOD 18 mg/dL (8-21)
[2022-05-28 09:10] LABS: ALANINE AMINOTRANSFERASE 6 U/L (12-78)
[2022-05-28] MEDS: EMOLLIENT COMBINATION NO.73 78 GM CREAM..G. TP SCH (10:18)
[2022-05-28] MEDS: PANTOPRAZOLE SODIUM 40 MG/VIAL (PROTONIX) IVP SCH (10:20)
[2022-05-28] MEDS: BALSAM PERU/CASTOR OIL 56.7 GM OINT...G. TP SCH (10:21)
[2022-05-28 12:04] VITALS: BP_SYST 130
[2022-05-28 17:44] VITALS: BP_SYST 129
--- NOTE | 2022-05-28 18:04 | NUR ---
REPORT CALLED TO BETO Moulton RN WITH [facility] [phone]. ALL QUESTIONS ANSWERED. PROVIDED CALL BACK NUMBER. PT AWAITING TRANSPORTATION. AT BEDSIDE. CONSENT TO TRANSPORT OBTAINED. DOCUMENT PLACED ON CHART. REQUESTED COPY OF TRANSFER CONSENT FORM. CHARGE NURSE FAZAL ULRICHED TO GIVE PT COPY OF CONSENT FORM. COPY OF TRANSFER CONSENT FORM GIVEN TO PATIENT.
--- NOTE | 2022-05-28 18:23 | NUR ---
Nutrition F/U Admitting Diagnosis GI bleed, anemia Reviewed Pertinent Medical/Surgical Hx Medical Record, Family Member Medical History Comment: PMH: arthritis, HTN, COPD, and DMT2 per physician notes. Pending D/C to [facility] 05/28/22 per RN. Subjective Information Background Check Coordinator rounded to pt bedside, pt awake/disoriented at time of visit. Pt's in room at time of visit. Pt's attests to pt's decreased appetite d/t pt's ulcers, states that he barely eats 1 tsp of food. Pt's aids pt w/ feeding, however she stated that she was upset w/ pt's meal selections d/t "too much sugar" offered on pt tray. Pt's attests to "throwing out food" because pt "can't eat that." Background Check Coordinator spoke w/ RN, who stated that pt received his dinner and is feeding him small bites of food. Background Check Coordinator recommended diabetic ONS Glucerna to help w/ pt oral intake. Pt has no issues w/ N/V/C/D today, however recently had chewing/swallowing issues d/t GI ulcers. Pt's attests to LBM 05/28/22 - small amount of light green colored loose stool. CBW 147 lbs via bedscale - stable since admission. Background Check Coordinator performed visual NFPE, findings suggestive of mild fat loss/muscle wasting in temporal/orbital regions and upper extremeities, and moderate fat/loss muscle wasting in lower extremities and scapula region w/ protuding spine. Current Diet Order/Nutrition Support Full Liquid x 3 days NEW Pertinent Medications Protonix, D5 @ 30ml, Zofran, Restoril, SSI Pertinent Labs BG 150 H - improving, BUN 18 WNL, WBC 16.4 H - worsening, H/H 9.72 L/28.5 L - improving Height 5'10 Weight 149 lbs/67.8kg - stable since admission Body Mass Index 21.38 kg/m2 %IBW 90 [place]/Adjusted Body Weight IBW: 166#/75.5 kg Weight Status Underweight Gastrointestinal Symptoms Bleeding Last BM May 28, 2022 Usual Diet At Home Regular per nursing nutritional screening Skin Integrity Comment: Cholo scale: 13 per EMR 05/28 -- per [facility] note 05/23: 1. R Sacral area: Unstageable pressure uilcer, present on admission. 2. R Sacral area inferior to site 1: Unstageable pressure uilcer, present on admission. 3. R Buttock: Unstageable pressure uilcer, present on admission. Per EMR review, pt has bilat foot non-pitting edema Current % PO 26% Estimated Energy Expenditure (kcals/day) 5920-6076 (30-35 kcal/kg IBW d/t wound healing, critical illness) Estimated Protein Required (g/day) 91-151 (1.5-2 gm/kg IBW d/t wound healing, critical illness) Estimated Fluid Required (l/day) 1.9-2.3 (25-30 ml/kg IBW d/t GERIAT maintenance) Problem/Etiology/Signs/Symptoms MODIFIED Altered GI function R/T compromised GI AEB GI bleeding, need for PRBCs, and low H/H. 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 (Modified, Ongoing) Expected Outcomes/Goals - Monitor diet advancement and/or provision of nutrition support w/ goal of pt meeting at least 50% of estimated nutritional needs, labs trending WNL, normal GI function, and skin integrity/wt maintenance Dietitian Recommendations * Full Liquid, CCHO diet w/ Glucerna TID, Tod BID (supplements yield 840kcal/day, 35g protein/day) * If/when medically appropriate, consider advance to: Soft (low-fiber/bland), CCHO diet w/ Glucerna TID, Tod BID Follow Up High Risk: F/U in 2-3days Follow Up By May 31, 2022 Alert Indicated Malnutrition Alert <50 Est Energy Req 5 Day Body Fat: Mod to Severe Depletion Muscle Mass: Mod to Severe Depletion Malnutrition Recommendations by RD Increase Calorie Intake, Protein Supplementation
--- NOTE | 2022-05-28 18:30 | NUR ---
TRANSPORTATION HAS ARRIVED. RFA PIV DISCONTINUED. NO BLEEDING SWELLING REDNESS NOTED.
== END 2022-05-28 18:30 | DRG 377 ==
LOC: SED 16:25 → STU 18:38 → SIC 05-22 07:51 → STU 05-23 17:04 → SMU 05-26 21:16
PROVIDERS: ADMIT Internal Medicine; ATTEND Internal Medicine
PROC: 30233N1 Transfusion of Nonautologous Red Blood Cells into Peripheral Vein, Percutaneous Approach (ICD-10-PCS; principal; 2022-05-21)
PROC: 0DB98ZX Excision of Duodenum, Via Natural or Artificial Opening Endoscopic, Diagnostic (ICD-10-PCS; 2022-05-21)
DX: K26.4 Chronic or unspecified duodenal ulcer with hemorrhage (principal); E43 Unspecified severe protein-calorie malnutrition; K25.4 Chronic or unspecified gastric ulcer with hemorrhage; E11.9 Type 2 diabetes mellitus without complications; I10 Essential (primary) hypertension; Z20.822 Contact with and (suspected) exposure to COVID-19; M19.90 Unspecified osteoarthritis, unspecified site; Z79.82 Long term (current) use of aspirin; Z79.899 Other long term (current) drug therapy; Z79.891 Long term (current) use of opiate analgesic; T39.395A Adverse effect of other nonsteroidal anti-inflammatory drugs [NSAID], initial encounter
CPT/HCPCS: 36415; 43239; 70450-TC; 71045; 76376; 80048; 80053; 81000; 82728; 82962; 83540; 83550; 83605; 83690; 84484; 85007; 85025; 85027; 86886; 86900; 86901; 86920; 87081; 88305; 88312; 88313; 93005; 94760; 97110-GP; 97530-GP; 99285; A6209; C9113; G0378; J2250; J2405; J3010; J3480; J7042; J7050; P9021